=== PATIENT | male | born 1960 | race Caucasian/White ===

== ENCOUNTER 2024-02-29 13:33 | Outpatient (AMB) | payer BC, SELFPAY ==
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
[2024-02-29 14:44] VITALS: BP 148/90; PULSE 85; TEMP 36.3; O2SAT 97; BMI 27.1
== END 2024-02-29 15:45 | disposition home or self-care (01) ==
PROVIDERS: Visit Provider Internal Medicine
DX: R10.9 Unspecified abdominal pain (principal)
CPT/HCPCS: 81003; 99214

== ENCOUNTER 2025-03-01 12:24 | Outpatient (AMB) | payer BC, SELFPAY ==
[2025-03-01 12:34] VITALS: BP 140/80; PULSE 75; O2SAT 98; BMI 27.4
--- NOTE | 2025-03-01 12:34 | A.OFFPC_ITS ---
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: No Accompanied by: Self / Same As Patient Allergies lactose [LACTOSE] Allergy (Mild, Verified 03/01/25 12:35) NAUSEA & VOMITING Penicillins [PCN] Allergy (Mild, Verified 03/01/25 12:35) UNKNOWN Medication List - Last Reconciled 03/01/25 by JAI PenaP- escitalopram oxalate 10 mg PO DAILY lorazepam mg PO Tobacco use date assessed: 03/01/25 Dental Screening Dental Screen Date: 03/01/25 Did you have a dental visit in the last 12 months?: Yes Did you have a dental problem in the last 6 months where you did not have access to dental care?: No Was dental information given to patient?: Patient has dentist 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 - see comments HPI Details History of Present Illness The patient is a 64-year-old male presenting for a physical examination. The patient does not report any past medical history of prostate nor pancreatic cancer. He denies symptoms such as fever, chills, blurred vision, chest pain, shortness of breath, abdominal pain, blood in stool, constipation, and diarrhea. Additionally, urine-related issues or suicidal ideation were not present. The patient acknowledges undergoing a colonoscopy about ten years ago. Health Maintenance - Colonoscopy referral recommended due t o the patient's last procedure being approximately ten years ago. Social History - No details were explicitly discussed d uring the conversation related to social determinants of health such as employment, family status, substance use, exercise, or nutrition. Review of Systems - General: Denies fevers or chills. - Eyes: Denies blurred vision. - Respiratory: Denies chest pain or shor tness of breath. - Gastrointestinal: Denies abdominal ric n, blood in stool, constipation, diarrhea. - Genitourinary: Denies any urinary issu es. - Psychiatric: Denies suicidal ideation and homicidal ideation. Physical Exam General: Cooperative, healthy appearing, comfortable, no acute distress and well developed Orientation: Patient oriented x3 Limitations: No limitations Head: Normal to inspection Ears: Hearing grossly normal bilaterally Nose: Normal external nose present Face and sinus: Normal facial exam Eyes: Appearance normal, both eyes and all related structures Neck: Normal visual inspection and Yes full ROM Respiratory: Normal respiratory effort and able to speak in complete sentences. Clear to auscultation bilaterally Cardiovascular: Regular rate and rhythm. Normal S1 and S2 GI: Normal to inspection. Soft to palpation and nontender Skin: No rashes or lesions noted Neuro: Patient oriented x3 Extremities: Normal to inspection Results Plan I will arrange for a referral for the patient to undergo a colonoscopy as it has been ten years since his last screening. No additional treatments or diagnostic tests were discussed or deemed necessary based on the patient's reported history and denials of symptoms. Discussion Notes I discussed the importance of maintaining up-to-date cancer screenings and preventive care with the patient, including scheduling a colonoscopy given the ten-year gap since his last examination. No other specific interventions or assessments were indicated from our conversation. Follow-up care steps will be determined after the colonoscopy results. Patient Instructions - Schedule and complete a recommended co lonoscopy screening. - Return to the office if symptoms such as chest pain, shortness of breath, or any other new symptoms arise. - Continue to engage in routine health m aintenance activities. 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 1. Little interest or pleasure in doing things: not at all 2. Feeling down, depressed, or hopeless: not at all 3. Trouble falling or staying asleep, or sleeping too much: not at all 4. Feeling tired or having little energy: not at all 5. Poor appetite or overeating: not at all 6. Feeling bad about yourself - or that you are a failure or have let yourself or your family down: not at all 7. Trouble concentrating on things, such as reading the newspaper or watching television: not at all 8. Moving or speaking so slowly that other people could have noticed. Or the opposite - being so fidgety or restless that you have been moving around a lot more than usual: not at all 9. Thoughts that you would be better off or of hurting yourself in some way: not at all Total score: 0 Depression Screening Interpretation: Negative Depression Screening Done: Yes 92733 - PHQ-9 Billing: Yes Source: Developed by Drs. Ludwin Knight, Maggy Tobias, Jus Atkins and colleagues, with an educational patti from [employer]. Thrive Questionnaire Date Thrive assessed: 03/01/25 I am a: Patient What is your living situation today?: I have a steady place to live Within the past 12 months, did the food you bought not last and you didn't have the money to get more?: I choose not to answer this question Within the past 12 months, did you worry whether your food would run out before you got money to buy more?: I choose not to answer this question Do you have trouble paying for medicines?: No Do you have trouble getting transportation to medical appointments?: No Do you have trouble paying your heating and electricity bill?: No Do you have trouble taking care of your child, family member or friend?: No Do you have trouble with day-to-day activities such as bathing, preparing meals, shopping, managing finances, etc.?: No Are you currently unemployed and looking for a job?: No Are you interested in more education?: No Please select the resources that you would like help with: None Currently or been in a relationship where the following occur: No concerns reported THRIVE Score: 0 AUDIT C Alcohol Use Questionnaire (AUDIT-C) 1. How often do you have a drink containing alcohol?: Monthly or less 2. How many drinks containing alcohol do you have on a typical day when you are drinking?: 1 or 2 3. How often do you have six or more drinks on one occasion?: Never Total Score: 1 Score Reviewed/Action Taken: Yes MOR-7 AMB Questionnaire MOR-7 Date MOR - 7 assessed: 03/01/25 Feeling nervous, anxious, or on edge: 0 = Not at all Not being able to stop or control worryin = Not at all Worrying too much about different things: 0 = Not at all Trouble relaxin = Not at all Being so restless that it is hard to sit still: 0 = Not at all Becoming easily annoyed or irritable: 0 = Not at all Feeling afraid as if something awful might happen: 0 = Not at all Total MOR-7 score (0-4 normal; 5-9 mild; 10-14 moderate; 15-21 severe): 0 Source: Developed by Drs. Ludwin Knight, Maggy Tobias, Jus Atkins and colleagues, with an educational patti from [employer]. MOR-7 Assessment Billing MOR-7 Assessment Tool: MOR-7 Assessment 89064 Physical exam (Primary Care) Vital Signs: Last Vital Signs Pulse 75 03/01/25 12:34 BP 140/80 H 03/01/25 12:34 Pulse Ox 98 03/01/25 12:34 BMI result Body Mass Index 27.4 Tobacco/Smoking Status: Tobacco use Status Tobacco use date assessed 03/01/25 03/01/25 12:37 Patient Tobacco Use Status Never used Tobacco 03/01/25 12:37 PHQ-9: PHQ-9 Score PHQ-9: Total score 0 03/01/25 12:48 Depression Screening Interpretation: Negative Thrive Assessment: Date of Thrive Assessment Date Thrive assessed 03/01/25 03/01/25 12:37 Currently or been in a relationship where the following occur: No concerns reported Coding Level of Care Code New Pt Prev Care 40-64y(65817) Diagnoses Physical exam Z00.00 Screening for prostate cancer Z12.5 Screening for colon cancer Z12.11 Additional Codes MOR-7 Assessment Billing - MOR-7 Assessment Tool: MOR-7 Assessment 66256 ([id number]) PHQ-9 - 12547 - PHQ-9 Billing: Yes ([id number]) Assessment & Plan Assessment & Plan (1) Physical exam: Code(s): Z00.00 - Encounter for general adult medical examination without abnormal findings Category: Medical (2) Screening for prostate cancer: Code(s): Z12.5 - Encounter for screening for malignant neoplasm of prostate Category: Medical (3) Screening for colon cancer: Code(s): Z12.11 - Encounter for screening for malignant neoplasm of colon Category: Medical Plan . Orders: Orders Complete Blood Count Auto Diff Today Z00.00 - Encounter for general adult medical examination without abnormal findings TSH reflex Free T4 Today Z00.00 - Encounter for general adult medical ex amination without abnormal findings Lipid Panel Today Z00.00 - Encounter for general adult medical examination without abnormal findings Prostate Specific Antigen Scr Today Z12.5 - Encounter for screening for malignant neoplasm of prostate Comprehensive [place]. Panel Fast Today Z00.00 - Encounter for general adult medic al examination without abnormal findings UA CC w/rflx Micro + Cult Today Z00.00 - Encounter for general adult medical examination without abnormal findings Referrals Gastroenterology Referral Z12.11 - Encounter for screening for malignant neoplasm of colon
== END 2025-03-01 13:04 | disposition home or self-care (01) ==
LOC: HO.HMCC 12:25
PROVIDERS: Visit Provider Nurse Practitioner Family
DX: Z00.00 Encounter for general adult medical examination without abnormal findings (principal); Z12.5 Encounter for screening for malignant neoplasm of prostate; Z12.11 Encounter for screening for malignant neoplasm of colon

== ENCOUNTER → 2025-03-01 12:24 | Outpatient (BNVA) | payer BC, SELFPAY | PROVIDERS: Visit Provider Nurse Practitioner Family | DX: Z00.00 Encounter for general adult medical examination without abnormal findings (principal) | CPT/HCPCS: 96127 ==

== ENCOUNTER 2025-03-07 07:14 | Outpatient (REF) | payer BC, SELFPAY ==
[2025-03-07 10:15] LABS: Appearance Urine Turbid; Color Urine Dark Yellow; Glucose Urine UA Negative (Negative); Leukocyte Esterase Urine Negative (Negative); Nitrite Urine Negative (Negative); PH 5.5 (5.0-9.0); Specific Gravity - Urine 1.025 (1.005-1.025); Urine Blood Negative (Negative); Urine Ketones Trace mg/dL (Negative); Urine Protein Negative (Neg-Trace)
[2025-03-07 10:31] LABS: MANUAL DIFF FLAG NO
[2025-03-07 10:47] LABS: Basophils Absolute Auto 0.1 X10*3/uL (0.0-0.2); Basophils Percent Auto 2.3 % (0-2); Eosinophils Absolute Auto 0.3 X10*3/uL (0.0-0.4); Eosinophils Percent Auto 5.3 % (0-4); Hematocrit 47.7 % (42.0-52.0); Hemoglobin 16.3 g/dl (14.0-18.0); Imm Gran Abs Auto 0.02 X10*3/uL (0.00-0.03); Imm Gran Pct Auto 0.3 % (0.0-0.4); Lymphocytes Absolute Auto 2.2 X10*3/uL (1.2-4.9); Lymphocytes Percent Auto 35.6 % (20-40); Mean Corpuscular HGB Conc 34.2 g/dl (31.0-36.0); Mean Corpuscular Hemoglobin 32.1 pg (27.0-33.0); Mean Corpuscular Volume 94.1 fL (80.0-98.0); Mean Platelet Volume 10.1 fL (9.4-12.4); Monocytes Absolute Auto 0.5 X10*3/uL (0.1-1.2); Monocytes Percent Auto 8.4 % (2-11); Neutrophils Percent Auto 48.1 % (45-73); Platelet Count 277 X10*3/uL (160-400); Red Blood Count 5.07 X10*6/uL (4.60-5.80); Red Cell Distribution Width 13.2 % (11.0-16.0); White Blood Count 6.2 X10*3/uL (4.8-10.8)
[2025-03-07 11:17] LABS: Alanine Aminotransferase 30 U/L (0-40); Albumin Level 4.3 g/dL (3.5-5.0); Alkaline Phosphatase 80 U/L (39-117); Anion Gap 13 (12-20); Aspartate Amino Transferase 31 U/L (5-37); Bilirubin Total 0.5 mg/dL (0.0-1.0); Blood Urea Nitrogen 21 mg/dL (9-16); Calcium 9.6 mg/dL (8.4-10.2); Carbon Dioxide 29 mmol/L (22-29); Chloride 107 mmol/L (96-108); Cholesterol 187 mg/dL (<200); Estimated Glomerular Filt Rate > 60; Glucose Fasting 93 mg/dL (60-99); Potassium 4.7 mmol/L (3.3-5.1); Sodium 144 mmol/L (135-145); Total Protein 7.3 g/dL (6.5-8.0); Triglycerides 201 mg/dL (<150)
[2025-03-07 11:18] LABS: Prostate Specific Antigen Scr 2.08 ng/mL (<0.05-4.0)
[2025-03-07 11:43] LABS: HDL Cholesterol 52 mg/dL (>40); LDL Cholesterol Calculated 95 mg/dL (<100); TSH reflex Free T4 2.39 uIU/mL (0.32-4.0)
== END 2025-03-07 07:15 | disposition home or self-care (01) ==
LOC: HO.HMGCLDS 07:14
PROVIDERS: PCP Nurse Practitioner Family; Visit Provider Nurse Practitioner Family
DX: Z00.00 Encounter for general adult medical examination without abnormal findings (principal); Z12.5 Encounter for screening for malignant neoplasm of prostate; Z13.6 Encounter for screening for cardiovascular disorders
CPT/HCPCS: 36415; 80053; 80061; 81003; 84153; 84443; 85025